=== PATIENT | female | born 1955 | race Caucasian/White ===

== ENCOUNTER 2019-02-24 13:27 | Outpatient (CLI) | payer OTHER ==
--- NOTE | 2019-02-24 13:58 | RAD ---
EXAM: Chest PA and lateral: HISTORY: Chronic bronchitis. Productive cough. COMPARISON: None FINDINGS: Heart: Normal cardiac silhouette Aorta: Unremarkable Pulmonary vessels: Normal Costophrenic angles: Costophrenic angles are clear. Lungs: Increased interstitial markings which may be due to edema or infiltrate. Pneumothorax: No pneumothorax Osseous structures: No osseous abnormalities IMPRESSION: Increased interstitial markings which may be due to edema or infiltrate.
== END 2019-02-24 13:28 | disposition home or self-care (01) ==
LOC: BICRAD 13:27
PROVIDERS: ATTEND Family Medicine
DX: J20.9 Acute bronchitis, unspecified (principal); R05 Cough; J98.4 Other disorders of lung
CPT/HCPCS: 71046

== ENCOUNTER 2019-03-09 11:24 | Inpatient (IN) | payer OTHER ==
--- NOTE | 2019-03-09 11:59 | RAD ---
PORTABLE CHEST 1 VIEW: Date: 03/09/19 Time: 1127 hours HISTORY: Dizziness, weakness. FINDINGS: The heart size is normal. The lungs are expanded without focal areas of consolidation, pneumothoraces , or pleural effusions. IMPRESSION: No radiographic evidence of acute cardiopulmonary process. POS: TPC
[2019-03-09 12:12] LABS: #Basophils 0.1 thou/uL (0.0-0.2); #Eosinphils 0.2 thou/uL (0.0-0.7); #Lymphocytes 4.4 thou/uL (1.20-3.40); #Monocytes 1.2 thou/uL (0.11-0.59); #Neutrophils 12.7 thou/uL (1.40-6.50); %Basophils 0.4 % (0.0-1.0); %Eosinophils 1.3 % (0.0-10.0); %Lymphocytes 23.7 % (21.0-51.0); %Monocytes 6.2 % (0.0-10.0); %Neutrophils 68.4 % (42.0-75.0); Hemoglobin 15.7 g/dL (12.0-16.0); Mean Corpuscular HGB CONC 33.1 g/dL (32.0-36.0); Mean Corpuscular Hemoglobin 30.7 pg (27.0-31.0); Mean Corpuscular Volume 92.8 fL (78.0-98.0); Mean Platelet Volume 8.4 fL (7.4-10.4); Platelet Count 292 thou/uL (130-400); RBC Distribution Width 11.2 % (11.5-14.5); Red Blood Cell (RBC) Count 5.12 mill/uL (4.20-5.40); White Blood Cell (WBC) Count 18.6 thou/uL (4.8-10.8)
[2019-03-09 12:41] LABS: ALT (SGPT) 42 U/L (8-55); AST (SGOT) 35 U/L (5-34); Albumin 4.2 g/dL (3.4-4.8); Alkaline Phosphatase 65 U/L (40-150); Anion Gap 18 mmol/L (10-20); BUN (Urea Nitrogen) 40 mg/dL (9.8-20.1); Bilirubin, Total 0.6 mg/dL (0.2-1.2); CK (CPK) 219 U/L (29-168); Calc. Creatinine Clearance 0 mL/min (70-130); Calcium 11.3 mg/dL (7.8-10.44); Carbon Dioxide 24 mmol/L (23-31); Chloride 97 mmol/L (98-107); Estimated GFR-MDRD 46; Globulin 2.3 g/dL (2.4-3.5); Glucose 319 mg/dL (80-115); Lipase 35 U/L (8-78); Potassium 4.4 mmol/L (3.5-5.1); Protein, Total 6.5 g/dL (6.0-8.3); Sodium 135 mmol/L (136-145)
[2019-03-09 15:32] LABS: Bilirubin Negative (Negative); Blood, Urine Negative (Negative); Glucose, Urine (Dipstick) Negative (Negative); Leukocyte Large (Negative); Nitrite Negative (Negative); Protein, Urine (Dipstick) Negative (Neg-Trace); Urobilinogen 0.2 mg/dL (Less than 2)
[2019-03-09 15:35] LABS: Clarity Clear (Clear)
[2019-03-09 15:37] LABS: Bacteria/HPF Rare-Few HPF (None Seen); RBC/HPF 0-3 HPF (0-3); Squamous Epithelial 0-3 HPF (0-3)
[2019-03-09] MEDS ORDERED: Ondansetron PF 4 MG/2 ML Vial IVP PRN (15:42)
[2019-03-09] MEDS ORDERED: Ondansetron ODT 4 MG TAB SL PRN (15:42)
[2019-03-09] MEDS ORDERED: Sodium Chloride 0.9% 1,000 ML IV SCH (15:42)
[2019-03-09] MEDS ORDERED: Dextrose 5% in Water 1,000 ML IV PRN (16:00)
[2019-03-09] MEDS ORDERED: Acetaminophen 325 MG TAB PO PRN (16:00)
[2019-03-09] MEDS ORDERED: Dextrose 50% Abboject 50 ML SYRINGE SLOW IVP PRN (16:00)
[2019-03-09] MEDS ORDERED: Ondansetron ODT 4 MG TAB PO PRN (16:00)
[2019-03-09 16:27] LABS: #Basophils 0.1 thou/uL (0.0-0.2); #Eosinphils 0.2 thou/uL (0.0-0.7); #Lymphocytes 3.3 thou/uL (1.20-3.40); #Neutrophils 13.8 thou/uL (1.40-6.50); %Basophils 0.6 % (0.0-1.0); %Eosinophils 1.1 % (0.0-10.0); %Lymphocytes 18.1 % (21.0-51.0); %Monocytes 5.7 % (0.0-10.0); %Neutrophils 74.6 % (42.0-75.0); Hemoglobin 14.2 g/dL (12.0-16.0); Mean Corpuscular HGB CONC 32.3 g/dL (32.0-36.0); Mean Corpuscular Hemoglobin 30.3 pg (27.0-31.0); Mean Corpuscular Volume 93.8 fL (78.0-98.0); Mean Platelet Volume 8.1 fL (7.4-10.4); Platelet Count 266 thou/uL (130-400); RBC Distribution Width 11.3 % (11.5-14.5); Red Blood Cell (RBC) Count 4.71 mill/uL (4.20-5.40); White Blood Cell (WBC) Count 18.4 thou/uL (4.8-10.8)
--- NOTE | 2019-03-09 16:40 | PDOC.FPRHP ---
- History of Present Illness Chief Complaint: Syncope History of Present Illness: Mrs. Lozano is a pleasant 63 y/o female with a PMH of DM2, HTN, Gout, who presents to the ED following an episode of syncope. The patient states that she was washing her hair in the shower when she felt like "she just slumped down ". She does not recall the exact nature of the events, but her came into the shower to help her up. At that time he claims that her pupils were dialated and seemed disoriented, but did not have any clear mechanical trauma, facial asymmetry, dysarthria, ataxia, or obvious cognitive impairment. After this episode, the patient states that she had 2 episodes of nausea and vomiting of green mucous free of blood and food particles. Due to the 's poor eyesight, the patient called EMS and was taken to the ED. The patient admits to a recent URI treated with two rounds of antibiotics and steroids-completing them yesterday, poorly controlled DM2-especially over the last week, polyuria, foul-smelling urine, and an increase of stress both at home and at work. She denies any known cardiac dysfunction or seizure disorders, changes in vision, feelings of chest pain or shortness of breath, abdominal pain or changes in stool patterns or blood in her stool, significant changes in weight, changes in hair and nails, or toxic exposures. In regards to her DM2, she was prescribed and given samples of Humulin 70/30 and has been titrating insulin to lower her sugars. She is currently taking 15 U qAM and 10 U qPM. When EMS arrived to her house, her POC glucose was 333. In the ED, she was given 750 mg of Levaquin and 2 L NS bolus. - Allergies/Adverse Reactions Allergies Allergy/AdvReac Type Severity Reaction Status Date / Time amoxicillin Allergy Verified 03/09/19 15:41 - History PMHx: DM2, HTN, Gout, Hypothyroidism PSHx: Elective AB FHx: pat hx of stroke at 75 Social: denies tobacco, alcohol and drug. Admits to increased stress at home and at work - Review of Systems General: reports: fatigue. denies: fever/chills, weight/appetite/sleep changes , night sweats Eyes: denies: vision changes ENT: reports: nasal congestion, rhinorrhea Respiratory: reports: cough, congestion. denies: shortness of breath, exercise intolerance Cardiovascular: denies: chest pain, palpitation, edema, paroxysmal nocturnal dyspnea Gastrointestinal: reports: nausea, vomiting. denies: diarrhea, constipation, abdominal pain, GI bleeding Genitourinary: reports: polyuria, other (Foul-smelling urine.) Skin: reports: rashes Musculoskeletal: reports: arthritis/arthralgias. denies: pain, tenderness, stiffness Neurological: reports: syncope, weakness. denies: seizure Psychological: reports: anxiety - Vital signs BP: [108/78] HR: [84] RR: [16] Tmax: [97.8] Pox: [98]% on [Room] Wt: [77 kg] - Physical Exam Constitutional: NAD, awake, alert and oriented, well developed HEENT: normocephalic and atraumatic, PERRLA, EOMI, conjunctiva clear, no scleral icterus, grossly normal vision, grossly normal hearing, normal nasal mucosa, MMM, good dention, other (No papilledema) Neck: supple, FROM, trachea midline, no LAD, no JVD, no thyromegaly Chest: no-tender to palpation, no lesions Heart: RRR, normal S1/S2, no murmurs/rubs/gallops, pulses present, no edema, other (NIH Score: No) Lungs: CTAB, no respiratory distress, good air movement, no rales/rhonchi, no wheezing, no retractions Abdomen: soft, non-tender, no masses/distention Musculoskeletal: normal structure, normal tone, ROM grossly normal Neurological: no focal deficit, CN II-XII intact, normal sensation, other (- Dysdiadokinesia, -Nose to Finger, -Heel to Phelps) Skin: no jaundice, other (Cap Refill: 3-4 Seconds) Heme/Lymphatic: no purpura, no LAD Psychiatric: normal mood and affect, good judgment and insight, intact recent and remote memory FMR H&P: Results - Labs Result Diagrams: 03/09/19 16:19 03/09/19 16:19 Lab results: WBC 18.4 thou/uL (4.8-10.8) H 03/09/19 16:19 Hgb 14.2 g/dL (12.0-16.0) 03/09/19 16:19 Hct 44.1 % (36.0-47.0) 03/09/19 16:19 MCV 93.8 fL (78.0-98.0) 03/09/19 16:19 Plt Count 266 thou/uL (130-400) 03/09/19 16:19 Neutrophils % 74.6 % (42.0-75.0) 03/09/19 16:19 Sodium 135 mmol/L (136-145) L 03/09/19 11:56 Potassium 4.4 mmol/L (3.5-5.1) 03/09/19 11:56 Chloride 97 mmol/L (98-107) L 03/09/19 11:56 Carbon Dioxide 24 mmol/L (23-31) 03/09/19 11:56 BUN 40 mg/dL (9.8-20.1) H 03/09/19 11:56 Creatinine 1.19 mg/dL (0.6-1.1) H 03/09/19 11:56 Glucose 319 mg/dL (80-115) H 03/09/19 11:56 Lactic Acid 3.1 mmol/L (0.5-2.2) H 03/09/19 12:31 Calcium 11.3 mg/dL (7.8-10.44) H 03/09/19 11:56 Total Bilirubin 0.6 mg/dL (0.2-1.2) 03/09/19 11:56 AST 35 U/L (5-34) H 03/09/19 11:56 ALT 42 U/L (8-55) 03/09/19 11:56 Alkaline Phosphatase 65 U/L (40-150) 03/09/19 11:56 Creatine Kinase 219 U/L (29-168) H 03/09/19 11:56 B-Natriuretic Peptide Less than 10.0 pg/mL (0-100) 03/09/19 11:56 Serum Total Protein 6.5 g/dL (6.0-8.3) 03/09/19 11:56 Albumin 4.2 g/dL (3.4-4.8) 03/09/19 11:56 Lipase 35 U/L (8-78) 03/09/19 11:56 Urine Ketones Negative mg/dL (Negative) 03/09/19 15:20 Urine Blood Negative (Negative) 03/09/19 15:20 Urine Nitrite Negative (Negative) 03/09/19 15:20 Ur Leukocyte Esterase Large (Negative) H 03/09/19 15:20 Urine RBC 0-3 HPF (0-3) 03/09/19 15:20 Urine WBC 7-10 HPF (0-3) A 03/09/19 15:20 Ur Squamous Epith Cells 0-3 HPF (0-3) 03/09/19 15:20 Urine Bacteria Rare-Few HPF (None Seen) 03/09/19 15:20 - EKG Interpretation EKG: EKG in ED: NSR no ectopy or ST changes - Radiology Interpretation Chest x-ray Status: image reviewed by me (No Acute Findings) FMR H&P: A/P - Problem List (1) Diabetes Current Visit: Yes Status: Acute Code(s): E11.9 - TYPE 2 DIABETES MELLITUS WITHOUT COMPLICATIONS (2) HTN (hypertension) Current Visit: Yes Status: Acute Code(s): I10 - ESSENTIAL (PRIMARY) HYPERTENSION (3) Hypothyroid Current Visit: Yes Status: Acute Code(s): E03.9 - HYPOTHYROIDISM, UNSPECIFIED (4) Syncope Current Visit: Yes Status: Acute Code(s): R55 - SYNCOPE AND COLLAPSE - Plan 1. Syncope -Admit to Tele-Obs -EKG: Normal Sinus Rhythm, CXR showed No acute findings -likely 2/2 dehydration for increased Urine output from uncontrolled DM2 -pt has also had 1 mo hx of URI sx and has finished 2 Abx courses and steroids, WBC elevated, follow blood and urine cx -Vital Signs WNL, no signs of sepsis at this time -CBC, CMP, TSH -UA w/ F/U Culture -Transthoracic Echo 2. Diabetes (Type 2) -ACHS Accuchecks -Mild Sliding Scale -Consistent Carb Diet -Hypoglycemia protocol -Ambulate Ad Marisol 3. Hypothyroidism -Check TSH -Continue home meds 4. HTN -Monitor BP -Continue home meds Dispo: Admit to Tele-Obs, ensure tight glucose control, and evaluate clinically. FMR H&P: Upper Level - Plan Date/Time: 03/09/19 [id number] ISemaj MD, have evaluated this patient and agree with findings/plan as outlined by campus interviews intern resident. Pertinent changes/edits/additions made to H&P. Summary below. Leann Lozano is a 63 year old F with a PMH of HTN, DM2, Hypothyroidism who presents to the ED after an episode of syncope vs pre-syncope. Event was not witnessed but quickly found patient down in shower. did not feel like she had completely passed out but felt like she was "out of it". She states that she remembers slumping down in the shower, denies head trauma or headache. States that she has been feeling fatigued over the last month due to a one month history of cough, congestion. Her PCP has treated her with 2 different antibiotics and a course of steroids, which have only improved her symptoms briefly. Over the last week, she has had uncontrolled blood sugars. PCP gave her samples for Humulin 70/30 to take to give her better control. She endorses polyuria and foul smelling urine. We are working patient up for possible syncope. Checking Echo, orthostatics. Symptoms could be related to dehydration but ruling out Cardiac causes with Echo and continuous cardiac monitoring. EKG in ED showed NSR, no ectopy, ST changes. Will consider continuing Abx in the morning. Checking UA and cx. Continue mIVFs.
[2019-03-09 16:41] LABS: Lactic Acid 1.4 mmol/L (0.5-2.2)
[2019-03-09 16:47] LABS: ALT (SGPT) 40 U/L (8-55); AST (SGOT) 28 U/L (5-34); Albumin 3.9 g/dL (3.4-4.8); Alkaline Phosphatase 61 U/L (40-150); Anion Gap 14 mmol/L (10-20); BUN (Urea Nitrogen) 33 mg/dL (9.8-20.1); Bilirubin, Total 0.7 mg/dL (0.2-1.2); Calc. Creatinine Clearance 0 mL/min (70-130); Calcium 10.4 mg/dL (7.8-10.44); Carbon Dioxide 28 mmol/L (23-31); Chloride 98 mmol/L (98-107); Estimated GFR-MDRD 58; Globulin 2.2 g/dL (2.4-3.5); Glucose 301 mg/dL (80-115); Potassium 4.4 mmol/L (3.5-5.1); Protein, Total 6.1 g/dL (6.0-8.3); Sodium 136 mmol/L (136-145)
[2019-03-09] MEDS: Sodium Chloride 0.9% 1,000 ML IV SCH ×2 (17:19→22:16)
[2019-03-09 17:26] VITALS: BMI 29.5
[2019-03-09] MEDS: Insulin Regular 300 UNITS/3 ML VIAL SC PRN (18:12)
[2019-03-09] MEDS ORDERED: HumuLIN 70/30 (300 UNITS/3 ML VIAL) SC SCH (21:00)
[2019-03-09] MEDS ORDERED: Insulin Regular 300 UNITS/3 ML VIAL SC PRN (21:34)
--- NOTE | 2019-03-10 05:19 | PDOC.FM ---
- Subjective Subjective: Mrs. Lozano is a pleasant 63 y/o female with a PMH of poorly controlled DM2, HTN, Hypothyroidism and Gout, who presented to the ED on 03/09 following an episode of syncope. The patient stated that she was washing her hair in the shower when she felt like she "just slumped down". Her came into the shower to assist and noticed that her pupils were dilated and that seemed disoriented, but did not have any symptoms worrisome for mechanical trauma or stroke. Immediately after, the patient stated that she had 2 episodes of nausea and non-bloody vomiting. The patient admits to a recent URI treated with two rounds of antibiotics and steroids - completing this regimen on 03/08 - as well as polyuria, foul-smelling urine, and an increase of stress both at home and at work. She denies any known cardiac dysfunction or seizure disorders , changes in vision, feelings of chest pain or SOB, abdominal pain or changes in stool patterns or blood in her stool, significant changes in weight, changes in hair and nails, or toxic exposures. In regards to her DM2, she was prescribed and given samples of Humulin 70/30 and has been titrating insulin to lower her sugars, but she has been on 70/30 Humulin 10 U BID and a Mild Sliding Scale of insulin since arriving in the hospital, which she was tolerating well. Due to poor blood glucose control, this regim of Humulin 70/30 has been increased to 13 U BID, with the Mild Sliding Scale of insulin remaining in place. Per the Telemetry staff, Mrs. Lozano had no overnight events and maintained a normal sinus rhythm in the 80s. The patient denies any syncope, chest pain, SOB , N/V, or ABD pain. - Objective Vital Signs & Weight: Vital Signs (12 hours) Temp Pulse Resp BP BP BP BP 03/10/19 04:00 98.4 F 81 17 117/67 03/10/19 00:00 96 115/64 03/09/19 20:23 98.5 F 99 17 92/51 L 03/09/19 20:00 03/09/19 18:11 109/65 113/66 109/63 Pulse Ox 03/10/19 04:00 95 03/10/19 00:00 03/09/19 20:23 92 L 03/09/19 20:00 92 L 03/09/19 18:11 Weight Weight 75.75 kg Result Diagrams: 03/09/19 16:19 03/09/19 16:19 Additional Labs: D-Dimer: 0.27 (Low) Troponins: 0.01 (Low) BNP: 10 (Low) TSH: 0.55 (WNL) Urine Analysis: Increased Leukocyte Esterase, Increased WBCs Urine Culture: Pending Transthoracic Echo: Pending EKG Reviewed by me: No (NS in ED) Radiology Reviewed by me: Yes (No Acute Findings) Phys Exam - Physical Examination Constitutional: NAD HEENT: moist MMs, sclera anicteric Neck: supple, full ROM Respiratory: no wheezing, no rales, no rhonchi, clear to auscultation bilateral Cardiovascular: RRR, no significant murmur, no rub Gastrointestinal: soft, non-tender, no distention Musculoskeletal: no edema, pulses present (Cap Refill 3-4 Seconds) Neurological: non-focal, moves all 4 limbs Psychiatric: normal affect, A&O x 3 Dx/Plan (1) Diabetes Code(s): E11.9 - TYPE 2 DIABETES MELLITUS WITHOUT COMPLICATIONS Status: Acute (2) HTN (hypertension) Code(s): I10 - ESSENTIAL (PRIMARY) HYPERTENSION Status: Acute (3) Hypothyroid Code(s): E03.9 - HYPOTHYROIDISM, UNSPECIFIED Status: Acute (4) Syncope Code(s): R55 - SYNCOPE AND COLLAPSE Status: Acute (5) Acute kidney injury Code(s): N17.9 - ACUTE KIDNEY FAILURE, UNSPECIFIED Status: Acute - Plan Plan: 1. Syncope -Day #1 on Telemetry -Telemetry Reading: No Overnight Events with NS rhythm and ~80 BPM, per staff -EKG in ED: Normal Sinus Rhythm -CXR in ED: No acute findings -Vital Signs: WNL -CBC: WNL -CMP: Resolving ZACHARIAH, Bun:Cr remains elevated -TSH: 0.55 -UA: Increased Leukocyte Esterase, increased WBCs -Urine Culture: Pending -Transthoracic Echo: Pending -Patient recently had 1M history of URI requiring two courses of antibiotics and steroids. -Patient's recent episode likely 2/2 to dehydration from uncontrolled DM2, await Urine Culture 2. Diabetes (Type 2) -Glucose readings reaffirm poor DM2 control -Humalog 70/30 increased to 13 U BID -ACHS Accuchecks -Mild Sliding Scale -Consistent Carb Diet -Hypoglycemia protocol -Ambulate Ad Marisol 3. Acute Kidney Injury -NS IV 125 ml/hr -BUN:Cr remains elevated 4. Hypothyroidism -TSH: 0.55 -Continue home meds 5. HTN -BP remains stable -Continue home meds Dispo: Hold on Telemetry, continue to control blood glucose and titrate meds accordingly, await urine culture and echo, and evaluate clinically.
[2019-03-10] MEDS: Allopurinol 100 MG TAB PO SCH (08:43)
[2019-03-10] MEDS: metFORMIN 500 MG TAB PO SCH ×2 (08:43→16:38)
[2019-03-10] MEDS: Enoxaparin Sodium 40 MG/0.4 ML SYRINGE SC SCH (08:43)
[2019-03-10] MEDS: HumuLIN 70/30 (300 UNITS/3 ML VIAL) SC SCH ×2 (08:44→21:00)
[2019-03-10] MEDS: Sodium Chloride 0.9% 1,000 ML IV SCH ×2 (08:44→15:01)
[2019-03-10] MEDS: Insulin Regular 300 UNITS/3 ML VIAL SC PRN ×2 (11:46→16:38)
--- NOTE | 2019-03-10 13:12 | PRG ---
DATE OF SERVICE: 03/10/2019 Ms. Lozano is a pleasant 63-year-old lady, who was admitted with a syncopal episode at home. She has been showering when she reached back to wash her hair and she "just slumped down." Her was able to lift her and call for help. She was emergently brought to our ER per EMS. She has been admitted for further evaluation of her syncope. This morning, she was awake and alert, in no distress. In fact, quite pleasant. We still have several tests to check up on her. Her EKG showed no acute changes. Her labs did reveal an elevated white count, but she just recently completed this trial of steroids. Our initial impression was she has been volume depleted from a recent respiratory illness she has been treated for. In the event, we will continue our workup on Ms. Lozano. Job ID: [id number]
[2019-03-10 14:27] LABS: Bacteria/HPF 4+ HPF (None Seen); Bilirubin Negative (Negative); Blood, Urine Negative (Negative); Clarity Clear (Clear); Glucose, Urine (Dipstick) Normal (Negative); Leukocyte 500 Leu/uL (Negative); Nitrite Negative (Negative); Protein, Urine (Dipstick) Negative (Neg-Trace); Squamous Epithelial None Seen HPF (0-3); Urobilinogen Normal mg/dL (Less than 2); WBC/HPF Greater than 50 HPF (0-3)
[2019-03-11] MEDS: Sodium Chloride 0.9% 1,000 ML IV SCH ×2 (02:06→08:50)
--- NOTE | 2019-03-11 05:59 | PDOC.FM ---
- Subjective Subjective: Mrs. Lozano is a pleasant 63 y/o female with a PMH of poorly controlled DM2, HTN, Hypothyroidism and Gout, who presented to the ED on 03/09 following an episode of syncope. The patient stated that she was washing her hair in the shower when she felt like she "just slumped down". Her came into the shower to assist and noticed that her pupils were dilated and that seemed disoriented, but did not have any symptoms worrisome for mechanical trauma or stroke. Immediately after, the patient stated that she had 2 episodes of nausea and non-bloody vomiting. The patient admits to a recent URI treated with two rounds of antibiotics and steroids - completing this regimen on 03/08 - as well as polyuria, foul-smelling urine, and an increase of stress both at home and at work. She was given 750 mg of Levofloxacin in the ED due to an elevated WBC count that could not be distinguished between active infection and stress reaction from recent steroid use, and this regimen was continued on the floor. She denies any known cardiac dysfunction or seizure disorders, changes in vision, feelings of chest pain or SOB, abdominal pain or changes in stool patterns or blood in her stool, significant changes in weight, changes in hair and nails, or toxic exposures. In regards to her DM2, she was prescribed and given samples of Humulin 70/30 and has been titrating insulin to lower her sugars, but she has been on 70/30 Humulin 10 U BID and a Mild Sliding Scale of insulin since arriving in the hospital, which she was tolerating well. Due to poor blood glucose control, this regim of Humulin 70/30 has been increased to 13 U BID, with the Mild Sliding Scale of insulin remaining in place. Per the Telemetry staff, Mrs. Lozano had no overnight events and maintained a normal sinus rhythm in the 80s. The patient denies any syncope, chest pain, SOB, N/V, or ABD pain. Recheck of Urine revealed increased Leukocyte Esterase, WBCs, and +4 Bacteria. Cultures revealed 10,000 to 25,000 CFUs of E. coli, indicating likely contaminated sample. - Objective Vital Signs & Weight: Vital Signs (12 hours) Temp Pulse Resp BP BP BP BP 03/11/19 04:00 99.3 F 86 14 133/71 03/10/19 20:50 98.1 F 96 16 112/62 117/67 111/59 L 03/10/19 20:00 Pulse Ox 03/11/19 04:00 99 03/10/19 20:50 97 03/10/19 20:00 97 Weight Weight 75.75 kg Result Diagrams: 03/11/19 07:06 03/11/19 07:06 Phys Exam - Physical Examination Constitutional: NAD HEENT: moist MMs, sclera anicteric, oral pharynx no lesions Neck: supple, full ROM Respiratory: no wheezing, no rales, no rhonchi, clear to auscultation bilateral Cardiovascular: RRR, no significant murmur, no rub Gastrointestinal: soft, non-tender, no distention Musculoskeletal: no edema, pulses present Psychiatric: A&O x 3 Skin: normal turgor, cap refill <2 seconds Dx/Plan (1) Diabetes Code(s): E11.9 - TYPE 2 DIABETES MELLITUS WITHOUT COMPLICATIONS Status: Acute (2) HTN (hypertension) Code(s): I10 - ESSENTIAL (PRIMARY) HYPERTENSION Status: Acute (3) Hypothyroid Code(s): E03.9 - HYPOTHYROIDISM, UNSPECIFIED Status: Acute (4) Syncope Code(s): R55 - SYNCOPE AND COLLAPSE Status: Acute (5) Acute kidney injury Code(s): N17.9 - ACUTE KIDNEY FAILURE, UNSPECIFIED Status: Acute (6) UTI (urinary tract infection) Status: Acute - Plan Plan: 1. Syncope -Day #2 on Telemetry -Telemetry Reading: No Overnight Events with NS rhythm and ~80 BPM, per staff -EKG in ED: Normal Sinus Rhythm -CXR in ED: No acute findings -Vital Signs: WNL -CBC: WNL -CMP: Resolving ZACHARIAH, Bun:Cr remains elevated -TSH: 0.55 -UA: Increased Leukocyte Esterase, increased WBCs, +4 Bacteria -Urine Culture: 10,000 to 25,000 CFUs of E. Coli, likely contaminated. -Transthoracic Echo: 55-60% Ejection Fraction, no signs of severe dysfunction -Patient recently had 1M history of URI requiring two courses of antibiotics and steroids. -Patient's recent episode likely 2/2 to dehydration from uncontrolled DM2, UTI less likely 2. Diabetes (Type 2) -Glucose readings reaffirm poor DM2 control -Humalog 70/30 increased to 13 U BID -ACHS Accuchecks -Mild Sliding Scale -Consistent Carb Diet -Hypoglycemia protocol -Ambulate Ad Marisol 3. UTI (Ruled Out) -Initial UA revealed increased Leukocyte Esterase, WBCs, and Bacteria -Difficult to distinguish elevated WBC count from UTI or recent steroid course -Urine Culture revealed only 10,000 - 25,000 CFUs, likely contaminated -Additional dose of Levofloxacin likely not needed 4. Acute Kidney Injury -NS IV 125 ml/hr -BUN:Cr remains elevated 5. Hypothyroidism -TSH: 0.55 -Continue home meds 6. HTN -BP remains stable -Continue home meds Dispo: Patient appears stable and severe cardiac, respiratory and neurogenic causes of episode of near syncope have likely been ruled out, indicating poorly controlled DM2 and dehydration as most likely causative factors. Patient has an appointment for F/U with market risk specialist on 03/18 and will F/U with her PCP shortly thereafter. Recommend DC today with close F/U of blood glucose control with market risk specialist and PCP. Addendum - Attending - Attending Attestation Date/Time: 03/11/19 3198 I personally evaluated the patient and discussed the management with Dr. Loredo. I agree with the History, Examination, Assessment and Plan documented above with any addition or exceptions noted below. Presyncope, believed 2/2 vagal + dehydration. Increase BS control. ZACHARIAH resolved. Asymptomatic bacteriuria, no indication for tx.
[2019-03-11 07:22] LABS: #Basophils 0.1 thou/uL (0.0-0.2); #Eosinphils 0.4 thou/uL (0.0-0.7); #Lymphocytes 3.6 thou/uL (1.20-3.40); #Monocytes 0.8 thou/uL (0.11-0.59); #Neutrophils 5.6 thou/uL (1.40-6.50); %Basophils 0.6 % (0.0-1.0); %Eosinophils 3.6 % (0.0-10.0); %Lymphocytes 34.5 % (21.0-51.0); %Monocytes 7.6 % (0.0-10.0); %Neutrophils 53.7 % (42.0-75.0); Hemoglobin 12.3 g/dL (12.0-16.0); Mean Corpuscular HGB CONC 32.3 g/dL (32.0-36.0); Mean Corpuscular Hemoglobin 30.8 pg (27.0-31.0); Mean Corpuscular Volume 95.5 fL (78.0-98.0); Mean Platelet Volume 8.1 fL (7.4-10.4); Platelet Count 174 thou/uL (130-400); RBC Distribution Width 11.3 % (11.5-14.5); Red Blood Cell (RBC) Count 3.98 mill/uL (4.20-5.40); White Blood Cell (WBC) Count 10.4 thou/uL (4.8-10.8)
[2019-03-11 07:39] LABS: Anion Gap 10 mmol/L (10-20); BUN (Urea Nitrogen) 16 mg/dL (9.8-20.1); Calc. Creatinine Clearance 82 mL/min (70-130); Calcium 8.2 mg/dL (7.8-10.44); Carbon Dioxide 25 mmol/L (23-31); Chloride 109 mmol/L (98-107); Estimated GFR-MDRD 68; Glucose 166 mg/dL (80-115); Potassium 4.1 mmol/L (3.5-5.1); Sodium 140 mmol/L (136-145)
[2019-03-11] MEDS: metFORMIN 500 MG TAB PO SCH (08:49)
[2019-03-11] MEDS: Allopurinol 100 MG TAB PO SCH (08:49)
[2019-03-11] MEDS: HumuLIN 70/30 (300 UNITS/3 ML VIAL) SC SCH (08:49)
[2019-03-11] MEDS: Enoxaparin Sodium 40 MG/0.4 ML SYRINGE SC SCH (08:49)
[2019-03-11 11:08] VITALS: BP 138/82; TEMP 98.3
[2019-03-11] MEDS: Insulin Regular 300 UNITS/3 ML VIAL SC PRN (11:08)
--- NOTE | 2019-03-11 11:58 | PQF ---
CLINICAL DOCUMENTATION IMPROVEMENT CLARIFICATION FORM: ICD-10 Updated PLEASE DO AN ADDENDUM TO THE PROGRESS NOTE WITH ANY DOCUMENTATION UPDATES OR ADDITIONS AND CARRY THROUGH TO DC SUMMARY. THANK YOU. DATE: 03/11/19 ATTN: DR. BULLOCK Please exercise your independent, professional judgment in responding to the clarification form. Clinical indicators are provided on the bottom of this form for your review Please check appropriate box(es): [ ] Sepsis due to: (Pna, UTI, gangrenous gall bladder, etc.) Due to: [ ] Device (please specify) [ ] Implant [ ] Graft [ ] Infusion [ X ] SIRS due to non-infectious process (please specify etiology) Elevated WBCs most likely secondary to recent steroid use, since Urine Culture returned only a sub-clinical amount of bacterial CFUs (10,000 - 25,000). Elevated Lactic Acid most likely secondary to severe dehydration. [ ] with organ dysfunction [ ] without organ dysfunction [ ] Severe sepsis with acute organ dysfunction of: (Examples: respiratory failure, encephalopathy, acute kidney failure, other) [ ] Septic Shock [ ] Localized infection without sepsis [ ] Other diagnosis [ ] Unable to determine In addition, please specify: Present on Admission (POA): [ X ] Yes [ ] No [ ] Unable to determine For continuity of documentation, please document condition throughout progress notes and discharge summary. Thank You. CLINICAL INDICATORS - SIGNS / SYMPTOMS / LABS ER NOTE: "SIRS" WBC 18.6 LACTIC 3.1 RISKS: SYNCOPE RECENT URI WITH STEROID COURSE POLYURIA (PROGRESS NOTE 03/11: "INITIAL UA REVEALED INCREASED LEUKOCYTE ESTERASE , WBCS, AND BACTERIA-DIFFICULT TO DISTINGUISH ELEVATED WBC COUNT FROM UTI OR RECENT STEROID COURSE." TREATMENT: IV LEVAQUIN (ER-03/10) IV FLUIDS (ER-PRESENT) BLOOD AND URINE CULTURES (This form is maintained as a part of the permanent medical record) [employer] 2015 [employer] All Rights Reserved TREMAINE [email or web address] Office: [phone] [email or web address]
--- NOTE | 2019-03-12 16:45 | DIS ---
DATE OF ADMISSION: 03/09/2019 DATE OF DISCHARGE: 03/11/2019 ADMITTING ATTENDING: Bj Perez MD DISCHARGE ATTENDING: Bj Perez MD CONSULT: None. PROCEDURE PERFORMED: Chest x-ray performed on 03/09/2019, demonstrating no radiographic evidence of acute cardiopulmonary process, echocardiogram performed on 03/10/2019, demonstrating no significant cardiac dysfunction and an ejection fraction of 55% to 60%. PRIMARY DIAGNOSIS: Syncope secondary to dehydration, most likely resultant from poorly controlled type 2 diabetes. SECONDARY DIAGNOSES: 1. Acute Kidney Injury 2. Hypertension. 3. Hypothyroidism. 4. Gout. DISCHARGE MEDICATIONS: 1. Allopurinol 100 mg p.o. daily. 2. Humulin 70/30, 13 units subcutaneous twice daily. 3. Metformin 500 mg p.o. b.i.d. with meals. DISCONTINUED MEDICATIONS: 1. Levofloxacin 750 mg IV Q12H 2. Pneumovax 23 Vaccine 0.5 IM HISTORY OF PRESENT ILLNESS/HOSPITAL COURSE: Ms. Lozano is a pleasant 63-year-old female with a past medical history of poorly controlled type 2 diabetes, hypertension, hypothyroidism, and gout, who presents to the emergency department on 03/09/2019, following an episode of syncope. The patient states she was washing her hair in the shower when she felt like she "just slumped down". Her came into the shower to assist and noticed that her pupils were dilated and she seemed disoriented. She did not have any symptoms at that time that were worrisome for mechanical trauma or stoke. Immediately thereafter, the patient stated that she had 2 episodes of nausea and non-bloody vomiting which she thought looked like post-nasal drainage discharge. The patient admits to a recent upper respiratory infection that was treated with two rounds of antibiotics and steroids, finishing this regimen the day before admission, as well as polyuria, foul smelling urine and an increased stress both at home and at work. She was given 750 mg of levofloxacin in the emergency department due to an elevated WBC count that could not be distinguished between acute infection and stress reaction from her recent steroid use. This regimen was continued for one additional day on the floor. She denies any known cardiac dysfunction or seizure disorders or changes in vision, feeling of chest pain or shortness of breath, abdominal pain or changes in stool patterns, blood in her stool, significant changes in weight, changes in hair or nail or toxic exposure. In regard to her type 2 diabetes, she was prescribed and given samples of Humulin 70/30 and has been titrating insulin to lower her sugars at home but she has been on 70/30 Humulin 10 units b.i.d. with a mild sliding scale at the hospital. This was later increased to 13 units b.i.d. with a mild sliding scale in order to achieve greater blood glucose control. Per telemetry staff, Ms. Lozano had no overnight events and her reading remained in normal sinus rhythm except for one short period of sinus tachycardia with a heart rate of 107-110 BPM. Her labs included an elevated white blood cell count of 18.4 on admission. This dropped to 10.4 on discharge. Her hemoglobin and hematocrit were 12.3 to 38 respectively. Her creatinine was 1.19 on admission and was 0.84 on discharge. She did have an echocardiogram done which revealed no significant cardiac dysfunction and an ejection fraction of 55% to 60%. DISPOSITION: The patient was stable. DISCHARGE INSTRUCTIONS: LOCATION: Home. DIET: Heart healthy and carbohydrate conscious diet. ACTIVITY: Ad-william. FOLLOWUP: The patient stated that she will follow up with her previously utilized registered nurse step down within the week and she also setup an appointment with her primary care physician locally, Dr. Bruce. Job ID: [id number] MTDD
== END 2019-03-11 14:26 | disposition home or self-care (01) | DRG 638 ==
LOC: ERS 11:24 → 2NO 13:26
PROVIDERS: ADMIT Family Medicine; ATTEND Family Medicine
DX: E11.65 Type 2 diabetes mellitus with hyperglycemia (principal); N17.9 Acute kidney failure, unspecified; R65.10 Systemic inflammatory response syndrome (SIRS) of non-infectious origin without acute organ dysfunction; I10 Essential (primary) hypertension; E86.0 Dehydration; M10.9 Gout, unspecified; F32.9 Major depressive disorder, single episode, unspecified; E03.9 Hypothyroidism, unspecified; T38.0X5A Adverse effect of glucocorticoids and synthetic analogues, initial encounter; Z79.4 Long term (current) use of insulin; Z79.899 Other long term (current) drug therapy; Z87.01 Personal history of pneumonia (recurrent)
CPT/HCPCS: 36415; 36416; 71045; 80048; 80053; 81001; 81003; 81015; 82550; 83605; 83690; 83880; 84443; 84484; 85025; 85379; 87040; 87077; 87086; 87186; 90471; 90732; 93005; 93306; 96361; 96365; G0009; J1650; J1815; J1956

== ENCOUNTER 2020-03-15 11:19 | Outpatient (CLI) | payer OTHER ==
--- NOTE | 2020-03-16 16:32 | MMO ---
Bilateral MAMMO Bilat Screen [facility]. CLINICAL HISTORY: Patient is 64 years old and is seen for screening. The patient has no family history of breast cancer. The patient has no personal history of cancer. VIEWS: The views performed were: bilateral craniocaudal with tomosynthesis and bilateral mediolateral oblique with tomosynthesis. FILMS COMPARED: The present examination has been compared to prior imaging studies performed at [facility] on 05/03/2014. This study has been interpreted with the assistance of computer-aided detection. MAMMOGRAM FINDINGS: There are scattered fibroglandular densities. Benign calcifications are noted bilaterally. Nodularity is stable. There are no suspicious masses, suspicious calcifications, or new areas of architectural distortion. IMPRESSION: THERE IS NO MAMMOGRAPHIC EVIDENCE OF MALIGNANCY. A ROUTINE FOLLOW-UP MAMMOGRAM IN 1 YEAR IS RECOMMENDED. THE RESULTS OF THIS EXAM WERE SENT TO THE PATIENT. ACR BI-RADS Category 2 - Benign finding MAMMOGRAPHY NOTE: 1. A negative mammogram report should not delay a biopsy if a dominant of clinically suspicious mass is present. 2. Approximately 10% to 15% of breast cancers are not detected by mammography. 3. Adenosis and dense breasts may obscure an underlying neoplasm. Reported by: TONY TILLEY MD Electonically Signed: [id number]
== END 2020-03-15 11:20 | disposition home or self-care (01) ==
LOC: BICMAMMO 11:19
PROVIDERS: ATTEND Family Medicine
DX: Z12.31 Encounter for screening mammogram for malignant neoplasm of breast (principal)
CPT/HCPCS: 77063; 77067

== ENCOUNTER 2021-02-24 13:19 | Emergency (ER) | payer MEDICARE ==
[2021-02-24 14:38] LABS: #Basophils 0.1 thou/uL (0.0-0.2); #Eosinphils 0.6 thou/uL (0.0-0.7); #Lymphocytes 3.6 thou/uL (1.20-3.40); #Neutrophils 6.1 thou/uL (1.40-6.50); %Basophils 0.9 % (0.0-1.0); %Eosinophils 5.3 % (0.0-10.0); %Lymphocytes 31.6 % (21.0-51.0); %Monocytes 8.7 % (0.0-10.0); %Neutrophils 53.5 % (42.0-75.0); Hemoglobin 14.3 g/dL (12.0-16.0); Mean Corpuscular HGB CONC 32.7 g/dL (32.0-36.0); Mean Corpuscular Hemoglobin 30.5 pg (27.0-31.0); Mean Corpuscular Volume 93.1 fL (78.0-98.0); Mean Platelet Volume 8.1 fL (7.4-10.4); Platelet Count 379 thou/uL (130-400); RBC Distribution Width 11.7 % (11.5-14.5); Red Blood Cell (RBC) Count 4.69 mill/uL (4.20-5.40); White Blood Cell (WBC) Count 11.5 thou/uL (4.8-10.8)
[2021-02-24 15:07] LABS: ALT (SGPT) 34 U/L (8-55); AST (SGOT) 50 U/L (5-34); Albumin 4.8 g/dL (3.4-4.8); Alkaline Phosphatase 71 U/L (40-110); Anion Gap 17 mmol/L (10-20); BUN (Urea Nitrogen) 25 mg/dL (9.8-20.1); Bilirubin, Total 0.5 mg/dL (0.2-1.2); Calc. Creatinine Clearance 0 mL/min (70-130); Calcium 10.3 mg/dL (7.8-10.44); Carbon Dioxide 26 mmol/L (23-31); Chloride 97 mmol/L (98-107); Glucose 217 mg/dL (80-115); Potassium 3.6 mmol/L (3.5-5.1); Protein, Total 7.8 g/dL (5.8-8.1); Sodium 136 mmol/L (136-145)
[2021-02-24] MEDS ORDERED: Ondansetron PF 4 MG/2 ML Vial ONE (17:39)
[2021-02-24 19:53] LABS: Bilirubin Negative (Negative); Blood, Urine Negative (Negative); Clarity Clear (Clear); Glucose, Urine (Dipstick) Normal (Negative); Ketone, Urine Negative (Negative); Leukocyte 250 Leu/uL (Negative); Nitrite Negative (Negative); Protein, Urine (Dipstick) Negative (Neg-Trace); RBC/HPF 0-3 HPF (0-3); Renal Epithelial 0-3 HPF (None Seen); Specific Gravity, Urine 1.012 (1.002-1.036); Squamous Epithelial 0-3 HPF (0-3); Urobilinogen Normal mg/dL (Less than 2); pH, Urine 5.5 (5.0-9.0)
[2021-02-24 20:00] LABS: Bacteria/HPF 1+ HPF (None Seen)
== END 2021-02-24 20:50 | disposition home or self-care (01) ==
LOC: ERS 13:19
DX: N39.0 Urinary tract infection, site not specified (principal); K80.20 Calculus of gallbladder without cholecystitis without obstruction; E11.9 Type 2 diabetes mellitus without complications; M10.9 Gout, unspecified; I10 Essential (primary) hypertension; E03.9 Hypothyroidism, unspecified; E78.5 Hyperlipidemia, unspecified; Z79.899 Other long term (current) drug therapy; Z79.4 Long term (current) use of insulin; Z79.82 Long term (current) use of aspirin
CPT/HCPCS: 36415; 71045; 76705; 80053; 81003; 81015; 83690; 84484; 85025; 87086; 93005; J2405

== ENCOUNTER 2021-05-16 10:11 | Outpatient (CLI) | payer MEDICARE ==
[2021-05-16 11:05] LABS: #Basophils 0.1 10x3/uL (0.0-0.2); #Eosinphils 0.6 10x3/uL (0.0-0.5); #Monocytes 0.6 10x3/uL (0.0-1.1); #Neutrophils 4.7 10x3/uL (1.5-8.4); %Basophils 1.1 % (0.0-2.0); %Eosinophils 7.2 % (0.0-6.0); %Lymphocytes 29.3 % (18.0-47.0); %Monocytes 7.4 % (0.0-10.0); %Neutrophils 54.8 % (40.0-75.0); Hemoglobin 12.1 g/dL (12.0-15.5); Mean Corpuscular HGB CONC 32.8 g/dL (32.0-36.0); Mean Corpuscular Volume 91.6 fl (81.6-98.3); Mean Platelet Volume 10.7 fl (7.4-10.4); Platelet Count 289 10x3/uL (150-450); RBC Distribution Width 12.7 % (11.5-14.5); Red Blood Cell (RBC) Count 4.03 10x6/uL (3.90-5.03); White Blood Cell (WBC) Count 8.5 10x3/uL (3.5-10.5)
[2021-05-16 11:19] LABS: ALT (SGPT) 19 U/L (8-55); AST (SGOT) 16 U/L (5-34); Albumin 4.4 g/dL (3.4-4.8); Alkaline Phosphatase 60 U/L (40-110); Anion Gap 15 mmol/L (10-20); BUN (Urea Nitrogen) 19 mg/dL (9.8-20.1); Bilirubin, Total 0.3 mg/dL (0.2-1.2); Calc. Creatinine Clearance 0 mL/min (70-130); Carbon Dioxide 28 mmol/L (23-31); Chloride 102 mmol/L (98-107); Globulin 2.4 g/dL (2.4-3.5); Glucose 212 mg/dL (80-115); Potassium 4.1 mmol/L (3.5-5.1); Protein, Total 6.8 g/dL (5.8-8.1); Sodium 141 mmol/L (136-145)
[2021-05-16 18:10] LABS: SARS-CoV-2 PCR by NAA Not Detected (NotDetected)
== END 2021-05-16 10:12 | disposition home or self-care (01) ==
LOC: LABBT 10:11
PROVIDERS: ATTEND Surgery
DX: Z01.818 Encounter for other preprocedural examination (principal); K80.20 Calculus of gallbladder without cholecystitis without obstruction; Z20.822 Contact with and (suspected) exposure to COVID-19
CPT/HCPCS: 80053; 85025; 93005; U0003; U0005; 93010

== ENCOUNTER 2021-05-19 05:46 | Day surgery (SDC) | payer MEDICARE ==
[2021-05-18 10:53] VITALS: BMI 27.4
[2021-05-19] MEDS ORDERED: Levofloxacin 500 mg/D5W 100 ml Premix Bag ONE (06:00)
[2021-05-19] MEDS ORDERED: Acetaminophen 500 MG TAB ONE (06:00)
[2021-05-19] MEDS ORDERED: Ketorolac Tromethamine 30 MG/ML VIAL ONE (06:00)
[2021-05-19] MEDS ORDERED: Fentanyl 100 MCG/2 ML VIAL ONE (06:35)
[2021-05-19] MEDS ORDERED: HYDROmorphone 2 MG/ML VIAL ONE (06:35)
[2021-05-19] MEDS ORDERED: Bupivacaine 0.25% HCL 30 ML VIAL ONE (06:47)
[2021-05-19] MEDS ORDERED: EPINEPHrine 1 MG/ML AMP ONE (06:47)
[2021-05-19] MEDS ORDERED: Iothalamate Meglumine 60% 50 ML VIAL FS ONE (06:47)
[2021-05-19] MEDS ORDERED: Lidocaine 1% PF 5 ML VIAL ONE (07:53)
[2021-05-19] MEDS ORDERED: Glycopyrrolate 0.2 MG/ML 5 ML SYRINGE ONE (07:53)
[2021-05-19] MEDS ORDERED: PHENYLEPHRINE-NS 100 MCG/ML 10 ML SYRINGE ONE (07:53)
[2021-05-19] MEDS ORDERED: Rocuronium Bromide 10 MG/ML (10ML VIAL) ONE (07:53)
[2021-05-19] MEDS ORDERED: ePHEDrine 50 MG/ML VIAL ONE (07:53)
[2021-05-19] MEDS ORDERED: Dexamethasone 20 MG/5 ML VIAL ONE (07:53)
[2021-05-19] MEDS ORDERED: Ondansetron PF 4 MG/2 ML Vial ONE (07:53)
[2021-05-19] MEDS ORDERED: PROPOFOL 200 MG/20 ML VIAL ONE (07:53)
== END 2021-05-19 10:55 | disposition home or self-care (01) ==
LOC: SDC 05:46
PROVIDERS: ATTEND Surgery
PROC: 0FT44ZZ Resection of Gallbladder, Percutaneous Endoscopic Approach (ICD-10-PCS; principal; 2021-05-19)
PROC: BF101ZZ Fluoroscopy of Bile Ducts using Low Osmolar Contrast (ICD-10-PCS; 2021-05-19)
DX: K80.10 Calculus of gallbladder with chronic cholecystitis without obstruction (principal); K83.8 Other specified diseases of biliary tract; E11.9 Type 2 diabetes mellitus without complications; E03.9 Hypothyroidism, unspecified; I10 Essential (primary) hypertension; M10.9 Gout, unspecified; K21.9 Gastro-esophageal reflux disease without esophagitis; Z79.82 Long term (current) use of aspirin; Z79.84 Long term (current) use of oral hypoglycemic drugs; Z79.899 Other long term (current) drug therapy; Z88.0 Allergy status to penicillin
CPT/HCPCS: 47532; 47563; J1610; Q9961; 88304; J0171; J1100; J1170; J1885; J1956; J2405; J2704; J3010; J3490; S0020

== ENCOUNTER 2021-06-01 10:43 | Outpatient (CLI) | payer MEDICARE | END 2021-06-01 10:44 | disposition home or self-care (01) | LOC: BICMAMMO 10:43 | PROVIDERS: ATTEND Family Medicine | DX: Z12.31 Encounter for screening mammogram for malignant neoplasm of breast (principal) | CPT/HCPCS: 77063; 77067 ==

== ENCOUNTER 2021-06-27 09:51 | Outpatient (CLI) | payer MEDICARE | END 2021-06-27 09:52 | disposition home or self-care (01) | LOC: BICMAMMO 09:51 | PROVIDERS: ATTEND Family Medicine | DX: Z13.820 Encounter for screening for osteoporosis (principal) | CPT/HCPCS: 77080 ==